=== PATIENT | female | born 1965 | race Caucasian/White ===

== ENCOUNTER 2017-01-16 07:24 | Day surgery (SDC) | payer BC ==
[~2017-01-16] VITALS: Ht 170.2 cm; Wt 62.4 kg
[~2017-01-16 07:24] MED LIST: DICY20TA11 PO; ESTR1TAB36 PO; LIDOCAINE 1% (10mg/ml) 2ml SDV INJ ONE; LISI-625 PO; LR 1,000 ML IV SCH; METO25TA6 PO; RIZA10TA PO; TOPI25TA64 PO
[2017-01-16 07:40] VITALS: BP 125/79; PULSE 70; RESP 14; TEMP 97.9; O2SAT 98
[2017-01-16 07:50] VITALS: Ht 170.2 cm; Wt 62.4 kg
--- NOTE | 2017-01-16 08:07 | ANESPREOP ---
Anesthesia Record Date and Time DATE: 01/16/17 TIME: 08:04 Pre-Op Diagnosis screening Proposed Surgical Procedure SCREENING COLONOSCOPY NPO since: mn Allergies: Coded Allergies: latex (Verified Allergy, Unknown, 01/16/17) Ht/Wt/BMI Height: 5 ' 7.00 " Weight: 62.400 kg BMI: 21.6 kg/m2 Medications Inpatient Medications Current Medications Medications (Trade) Dose Ordered Sig/Kristina Start Time Stop Time Status Last Admin Dose Admin Lactated Ringer's (Lactated Ringers) 1,000 ml @ 50 mls/hr Q20H 01/16/17 07:00 Dicyclomine HCl (Dicyclomine HCl) 20 Mg Tablet, 1 TAB PO QID, (Reported) Last Taken: on 01/13/17 Estradiol/Drospirenone (Angeliq 0.5 mg-1 mg Tablet ) 1 Tab Tablet, 1 TAB PO DAILY, (Reported) Last Taken: on 01/15/171999 Lisinopril (Lisinopril) 5 Mg Tablet, 1 TAB PO DAILY, (Reported) Last Taken: on 01/15/171999 Metoprolol Tartrate (Metoprolol Tartrate) 25 Mg Tablet, 1.5 TAB PO BID, (Reported) Last Taken: on 01/16/17 0600 Rizatriptan Benzoate (Rizatriptan) 10 Mg Tab.rapdis, 1 TAB PO BID PRN for HEADACHE, (Reported) Last Taken: on Unknown Date & Time Topiramate (Topiramate) 25 Mg Tablet, 2 TAB PO DAILY, (Reported) Last Taken: on 01/16/17 0600 Currently on Beta Jc: Yes Beta Jc Last Taken: 06 Medical/Surgical History Anesthesia PMH: Reports: *Hypertension, Anxiety (bipolar ), Denies: Anesthesia Reactions (NO AIRWAY ISSUES, SLOW TO WAKE), Cancer, Glaucoma, Malignant Hyperthermia, Renal Disease, Sleep Apnea Smoking Status: Former smoker (quit 4 yrs ago ) Alcohol Intake: none HX of Last Menstrual Period: 2016 Past Surgical History Orthopedic Surgeries: Abdominal Surgeries: Yes - APPY 1984 Genitourinary Surgeries: Cardiac Surgeries: Endocrine Surgeries: Reproductive Surgeries: Neurological Surgeries: Ear Surgeries: Nose Surgeries: Throat Surgeries: Other Surgeries: Yes - BREAST 2001 Anesthesia Adverse Reactions: FOUND none Family Hx of Anesthesia Advers: none Hx of Motion Sickness: No (sees Dr. Molina for mild mitral valve prolapse ) Pertinent Findings EKG Rhythm: Sinus Rhythm Physical Exam Respiratory: Bilat breath sounds equal, Lungs clear Cardiovascular: FOUND Regular rate, rhythm, FOUND No murmur Airway Assessment Mallampati Score: I Neck Extension: Good Overall Assessment: No Airway Concerns ASA: 2 Plan Anesthesia Plan: TIVA Discussion Discussed risks/options/alternatives of anesthesia and questions answered. Patient consents. Nursing pain assessment noted. Attestation Statement Prior to the delivery of any anesthetic medication, I examined the patient, developed the plan, obtained the patient's consent and discussed the risk and benefits of the procedure with the patient/guardian. HONG HENRIQUEZ CRNA Jan 16, 2017 08:07
[2017-01-16] MEDS ORDERED: PROPOFOL 500mg 50 ML IV ONE (08:52)
[2017-01-16] MEDS ORDERED: LIDOCAINE 2% (20mg/ml) 5ml PF SDV ONE (08:52)
[2017-01-16 09:12] VITALS: BP 103/54; PULSE 74; RESP 12; TEMP 98.7; O2SAT 93
[2017-01-16 09:20] VITALS: BP 105/58; PULSE 76; RESP 18; O2SAT 100
[2017-01-16 09:30] VITALS: BP 111/63; PULSE 81; RESP 20; O2SAT 100
[2017-01-16 09:40] VITALS: BP 104/56; PULSE 75; RESP 24; O2SAT 100
[2017-01-16 09:43] VITALS: BP 125/62; PULSE 88; RESP 22; O2SAT 100
--- NOTE | 2017-01-16 09:52 | ANESPO ---
Post-Op Note Date 01/16/17 Time: 09:23 Status Pt Participated in Evaluation: Pt participated in person Vital Signs Date Time Temp Pulse Resp B/P Pulse Ox O2 Delivery O2 Flow Rate FiO2 01/16/17 09:43 88 22 125/62 100 Room Air 01/16/17 09:12 98.7 Respiratory Function: Airway patent Cardiovascular Function: Regular pulse Mental Status: Alert/oriented Pain Level Intensity: 0 Unable to Assess Pain Due To: Medicated/Sleeping Hydration: IV infusing Complications during Recovery None apparent Follow-Up Instructions Instructions Per Surgeon HONG HENRIQUEZ CRNA Jan 16, 2017 09:52
--- NOTE | 2017-01-16 23:04 | OPNOTEF ---
DATE OF PROCEDURE: 01/16/2017 SURGEON: Ruy Grace MD PREOPERATIVE DIAGNOSIS Colorectal cancer surveillance, irritable bowel syndrome. POSTOPERATIVE DIAGNOSES Colorectal cancer surveillance, irritable bowel syndrome, mild sigmoid diverticulosis. PROCEDURE: Colonoscopy with biopsies. ANESTHESIA: TIVA. BRIEF HISTORY/INDICATIONS Mj is a 51-year-old female who is here for colorectal cancer surveillance. Of note, she has also been diagnosed with IBS but a diagnostic scope has never been done. We are doing this for screening purposes. However, will go ahead and do some biopsies to confirm her diagnosis of IBS. She has a sibling with inflammatory bowel, of note. FINDINGS Upon colonoscopy there was no evidence for angiodysplastic lesions, polyps or bisi malignancies. The patient was found to have mild diverticulosis within the sigmoid colon region. NARRATIVE OF PROCEDURE After informed consent was obtained, the patient was brought to the endoscopy suite and placed on the table in the left lateral decubitus position. The patient subsequently underwent total intravenous anesthesia by the nurse building coordinator per my request. Next, a digital rectal examination was performed. Normal sphincter tone. No rectal masses were appreciated. An Olympus colonoscope was inserted in the anus and advanced with the lumen of the colon under direct visualization at all times until the cecum was ascertained. Triangulation of the tenia coli, ileocecal valve and appendiceal lumen were all visualized. The scope was then slowly withdrawn, again maintaining visualization of the lumen at all times. As stated above, the entire colon was without evidence for angiodysplastic lesions, polyps or bisi malignancies. The patient was found to have mild diverticulosis within the sigmoid colon region. I was able to intubate the ileocecal valve and take biopsies of the terminal ileum. We also took random colon biopsies on our way out. The scope was continued to be withdrawn until it was brought back to the rectal vault. A J-maneuver was then performed. No worrisome perianal pathology was noted. The scope was allowed to straighten and was withdrawn through the anal verge. The patient tolerated the procedure without difficulty and was sent back to the preoperative area in stable condition. Secondary to the absence of findings upon this colonoscopy, the patient will not need to undergo a repeat colonoscopy until ten years from now unless new indications should arise. I have asked Mj to come back and see me in one to two weeks to discuss pathology and treatment. BETTY
== END 2017-01-16 10:00 | disposition home or self-care (01) ==
LOC: NSC 07:24
PROVIDERS: ATTEND Family Medicine
DX: K58.0 Irritable bowel syndrome with diarrhea (principal); K57.30 Diverticulosis of large intestine without perforation or abscess without bleeding; I10 Essential (primary) hypertension; Z79.899 Other long term (current) drug therapy
CPT/HCPCS: 45380; 81025; J2704